=== PATIENT | male | born 1965 | race Caucasian/White ===

== ENCOUNTER 2018-01-10 01:27 | Inpatient (IN) | payer BC ==
[~2018-01-10] VITALS: Ht 182.9 cm; Wt 144.4 kg
[2018-01-10] MEDS ORDERED: POTASSIUM CHLO20 ME2 PO (01:33)
[2018-01-10] MEDS ORDERED: LEVOTHYROXINE125 MCG PO (01:34)
[2018-01-10] MEDS ORDERED: HYDROCHLOROTHIA25 MG PO (01:35)
[2018-01-10] MEDS ORDERED: OLMESARTAN MEDO20 MG PO (01:35)
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
[2018-01-10] MEDS ORDERED: LEVOTHYROXINE112 MCG PO (10:38)
--- NOTE | 2018-01-10 13:33 | OR ---
[facility] [address], [place] [address] Signed DATE OF OPERATION: 01/10/2018 SURGEON: Clayton Sanchez MD PREOPERATIVE DIAGNOSES: 1. Acute calculous cholecystitis. 2. Morbid obesity. 3. Non-reducible umbilical hernia. POSTOPERATIVE DIAGNOSES: 1. Severe advanced gangrenous cholecystitis with gallstones. 2. Morbid obesity. 3. Umbilical hernia, incarcerated with omental fat. PROCEDURE: 1. Laparoscopic cholecystectomy with attempted cholangiogram, prolonged complicated difficult. 2. Surgeon-directed fluoroscopy. ANESTHESIA: General endotracheal, Lamine [place], JACK SPOOLER TENDER, and local 20 mL of 0.25% Marcaine with epinephrine. DRAINS: 7 mm Robert. 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 He has been having episodes of upper abdominal pain over many months, but last night had very severe pain after dinner in a band-like configuration in the upper abdomen. This progressed to epigastric and right subcostal pain. He presented to the emergency room in the resolution expert hours and a gallbladder ultrasound was performed showing multiple gallstones, no sign of intrahepatic ductal dilatation, a thickened gallbladder wall, and findings completely consistent with acute calculous cholecystitis. He has been admitted given fluid resuscitation, intravenous antibiotics, parenteral pain medication and so on. He did have a fair amount of difficulty getting comfortable despite reasonably advanced pain medication regimen. Electronically Signed By: CLAYTON SANCHEZ MD 01/10/18 1333 PATIENT NAME: CYRUS NAZARIO OPERATIVE REPORT DATE OF : 67 REPORT #: [id number] PHYSICIAN: CLAYTON SANCHEZ MD PCP: OTHER PCP REPORT IS CONFIDENTIAL AND NOT TO BE RELEASED WITHOUT AUTHORIZATION [facility] [address] [place], [place] [address] Signed He is now to undergo cholecystectomy preferably by laparoscopic approach. He and his understand the risks of bleeding, infection, bile duct injury, need for open procedure, retained stones, and other unforeseen complications and wished to proceed. FINDINGS: Gangrenous cholecystitis was noted. It was quite impressive. Decompression of the gallbladder showed dark bile. Despite the difficulty, cholecystectomy was performed laparoscopically. The operation was prolonged and difficult on that basis. The cystic duct was well identified. Cholangiogram was attempted, but due to leakage and so forth, a reasonable cholangiogram was never performed. Notably, he had preoperatively normal liver enzymes and I think it unlikely as retained stone, though it is a possibility he is admitted. The cystic duct, which was secured was viable. A drain was placed. Additionally, he was noted to have an umbilical hernia, which had incarcerated omental fat. The defect was about 3 cm. It would be strictly contraindicated to implant prosthetic mesh in this setting and repair with sutures alone would be highly probable for recurrence. This hernia can be repaired electively in the future. DESCRIPTION OF PROCEDURE: The patient was brought to the operating room, given a general endotracheal anesthetic. Concern was maintained this may be a difficult airway, but intubation went without problem. Preoperative antibiotic Ancef was given. Sequential compression device stockings were used and heparin subcutaneously administered. The abdomen was clipped and prepared with chlorhexidine solution and draped sterilely. His rotund abdomen necessitated a lifts for operative personnel. Given the non-reducible umbilical hernia, a supraumbilical incision was made and using an open Danyel cannula technique, pneumoperitoneum was achieved to a level of 14 mmHg of carbon dioxide gas. Intraabdominal inspection was undertaken showing a glimpse of the apex of the gallbladder, which was quite gangrenous. The liver itself was fatty infiltrated. There was no sign of ascites or carcinomatosis. Three additional trocars were placed in usual configuration, the subxiphoid, right midclavicular, and right anterior axillary line. The gallbladder was too tense and distended to be elevated cephalad. On that basis, a decompressing needle trocar was used to decompress dark bile from the gallbladder. The puncture site was secured with an endo-loop so as to avoid drainage during the case. The gallbladder was elevated cephalad, but his fatty liver impaired full elevation of the gallbladder initially. It was deemed advisable to additionally place a fan retractor. An epigastric incision was made and another 5 mm port placed allowing for a fan retractor to better expose the Electronically Signed By: CLAYTON SANCHEZ MD 01/10/18 1333 PATIENT NAME: CYRUS NAZARIO OPERATIVE REPORT DATE OF : 67 REPORT #: [id number] PHYSICIAN: CLAYTON SANCHEZ MD PCP: OTHER PCP REPORT IS CONFIDENTIAL AND NOT TO BE RELEASED WITHOUT AUTHORIZATION [facility] [address] [place] [id number] Signed infundibulum of the gallbladder. Impressive edema and inflammation of the fatty surrounds of the gallbladder was noted. Using blunt and electrocautery dissection, the infundibulum was dissected free with meticulous care. The cystic duct ultimately identified. Photographs were taken throughout. Once satisfied of the anatomy of the cystic duct, the clips were applied across gallbladder cystic duct junction. A transverse choledochotomy was made in the cystic duct. Retrograde milking of the duct showed relatively clear bile. An Renteria-type cholangiocatheter was placed in the cystic duct and attempts at passage of contrast into the biliary tree were met with leakage at the insertion site. Multiple permutations of passage of the catheter into the cystic duct was undertaken. It seemed to pass relatively freely and had no discernible impediment actually. Still, fluoroscopic view showed gross extravasation at the insertion site. Further dissection was undertaken of the cystic duct with all due care due to the profound edema and inflammation of surrounding area, viable duct was noted. Clips were reapplied to the infundibulum cephalad to the choledochotomy, but still a good cholangiogram was never really forthcoming unfortunately. Consideration was made for doing open operation to provide for cholangiogram, but consideration of his liver enzymes being normal preoperatively and no intrahepatic ductal dilatation. On ultrasound, the possibility of clinically relevant stones in the common bile duct was deemed less and therefore, no further attempts at cholangiogram were open operation for cholangiogram was deemed appropriate. The cystic duct was triply clipped and divided and the gallbladder was then dissected free in a retrograde fashion. Clips were applied to the cystic arterial branches as necessary. The excision of the gallbladder was long and laborious in part related to its advanced inflammation and alla necrosis in some areas. A few stones were spilled during the course of this, which had leaked from the occluding clip on the infundibulum. This was additionally secured with an endo-loop. The stones that had spilled were gathered up. Ultimately, the gallbladder was excised from the liver, placed in an endobag and extracted through the supraumbilical port site. The gallbladder was opened on the back table and found to have as expected severe inflammation of mucosa, multiple yellow gallstones of variable sizes. Irrigation was undertaken in the subhepatic space. There was no sign of bile leak, bleeding, or other problems. Through a right-sided trocar site, a 7 mm flat Robert drain was insinuated into the subhepatic space and secured the skin with a 2-0 nylon suture. The trocars were removed under direct visualization. There was a small amount of bleeding from the 5 mm trocar sites, which was easily secured with electrocautery. Electronically Signed By: CLAYTON SANCHEZ MD 01/10/18 1333 PATIENT NAME: CYRUS NAZARIO OPERATIVE REPORT DATE OF : 67 REPORT #: [id number] PHYSICIAN: CLAYTON SANCHEZ MD PCP: OTHER PCP REPORT IS CONFIDENTIAL AND NOT TO BE RELEASED WITHOUT AUTHORIZATION [facility] [address], [place] [address] Signed Explantation of the Danyel cannula allowed for digital examination of the hernia inferior to the supraumbilical incision. The hernia defect had an incarcerated omentum. No hollow viscus. It was deemed advisable to leave the hernia in situ for the time being as the size was about 3 cm and had no hollow viscus within it and could not reasonably be repaired with mesh and quite unlikely to be adequately repaired with suture technique alone. Repair of the hernia in the future will be planned. The fascia of the umbilical site was reapproximated 1st with interrupted 2-0 PDS and subsequently 0 Vicryl securing it well. Irrigation was undertaken and the skin and hemostasis assured. A 20 mL of 0.25% Marcaine with epinephrine was injected locally. The skin was then closed with interrupted 3-0 Vicryl. Steri-Strips were applied. The patient was ultimately extubated. He was noted to have a fair amount of coughing and straining of the abdominal wall, but no discernible disruption of his supraumbilical wound. He was taken to recovery room in good condition having suffered no complication. The operation was prolonged, complicated, and difficult lasting four times longer than usual, all related to his advanced obesity, severe gangrenous changes of the gallbladder and so on. MD VONDA Retana/BECKYL /[id number] cc: TAMMY Godoy MD Copies: CHRISTINA HUNT PA-C, KELLY DEAN MD ~ Electronically Signed By: CLAYTON SANCHEZ MD 01/10/18 1333 PATIENT NAME: CYRUS NAZARIO OPERATIVE REPORT DATE OF : 67 REPORT #: [id number] PHYSICIAN: CLAYTON SANCHEZ MD PCP: OTHER PCP REPORT IS CONFIDENTIAL AND NOT TO BE RELEASED WITHOUT AUTHORIZATION
--- NOTE | 2018-01-10 21:55 | EKG ---
[facility] [address] [facility] [place] [address] Signed Sinus bradycardia Otherwise normal ECG No previous ECGs available Confirmed by MARION PHAM MD ([id number]) on 01/10/2018 9:55:13 PM Electronically Signed By: MARION PHAM MD 01/10/18 2155 PATIENT NAME: CYRUS NAZARIO Electrocardiogram DATE OF : 67 PHYSICIAN: MARION PHAM MD REPORT #: [id number] REPORT IS CONFIDENTIAL AND NOT TO BE RELEASED WITHOUT AUTHORIZATION
[2018-01-11] MEDS ORDERED: IBUPROFEN600 MG PO (18:03)
[2018-01-11] MEDS ORDERED: OXYCODON-ACETA1 EAC2 PO (18:03)
[2018-01-11] MEDS ORDERED: MAPAP325 MG PO (18:04)
== END 2018-01-11 18:45 | disposition home or self-care (01) | DRG 418 ==
LOC: ED 01:27 → MS 01:29
PROVIDERS: ADMIT Surgery
PROC: 0FT44ZZ Resection of Gallbladder, Percutaneous Endoscopic Approach (ICD-10-PCS; principal; 2018-01-10 09:00)
DX: K80.00 Calculus of gallbladder with acute cholecystitis without obstruction (principal); K42.0 Umbilical hernia with obstruction, without gangrene; Z68.41 Body mass index [BMI] 40.0-44.9, adult; I10 Essential (primary) hypertension; E03.9 Hypothyroidism, unspecified; K76.0 Fatty (change of) liver, not elsewhere classified; E66.01 Morbid (severe) obesity due to excess calories; Z79.899 Other long term (current) drug therapy; Z88.0 Allergy status to penicillin
CPT/HCPCS: 00790; 36415; 76000; 76705; 80053; 81001; 82247; 82465; 83615; 83690; 84100; 84478; 84484; 84550; 85025; 93005; 93010; 94762; 96361; 96374; 96375; 96376; 99285; C1757; G0378; J0690; J1170; J1644; J1885; J2250; J2270; J2370; J2405; J2550; J2704; J2765; J3010; J7030; J7120

== ENCOUNTER 2018-01-15 21:46 | Observation (INO) | payer BC ==
[~2018-01-15] VITALS: Ht 182.9 cm; Wt 131.1 kg
[~2018-01-15 21:46] MED LIST: HYDROCHLOROTHIA25 MG PO; IBUPROFEN600 MG PO; LEVOTHYROXINE112 MCG PO; LEVOTHYROXINE125 MCG PO; MAPAP325 MG PO; OLMESARTAN MEDO20 MG PO; OXYCODON-ACETA1 EAC2 PO; POTASSIUM CHLO20 ME2 PO
--- NOTE | 2018-01-16 00:50 | NUR ---
REPORT RECEIVED VIA PHONE FROM JARRELL GUY.
--- NOTE | 2018-01-16 01:05 | NUR ---
RECIEVED PT TO FLOOR VIA STRETCHER. PT IS A/O. SBA TO BED. PAIN 5/10. VSS. 1L NC PUT IN PLACE FOR SATURATION OF 88%. ORIENTED PT TO ROOM AND CALL LIGHT USE. NS STARTED AT 125 IN RIGHT HAND IV. IV IS PATIENT AND SITE WNL. LUNGS ARE CLEAR, HEART SOUNDS REGULAR. BOWEL TONES HYPOACTIVE. CMS INTACT. PULSES +2 X4. GLASSES AT BEDSIDE. PT IS PLACED ON NPO STATUS. CALL LIGHT WITHIN REACH. REPORTS NO OTHER NEEDS AT THIS TIME.
--- NOTE | 2018-01-16 01:50 | NUR ---
REPOTRED 5/10 PAIN PRN PAIN MEDICATION GIVEN. PT ON CONT PULSE OX FOR DESATTING TO 88%. 1L NC IN PLACE.
--- NOTE | 2018-01-16 03:38 | NUR ---
PT APPEARS TO BE SLEEPING. RESPIRAIOTNS ARE EQUAL. PT IS SNORING. 1L NC IN PLACE. SATURATION 95%, HEART RATE IS 66. NS INFUSING @ 125ML/HR. CALL LIGHT IS WITHIN REACH.
--- NOTE | 2018-01-16 06:08 | NUR ---
PAIN 6/10 PRN PAIN MEDICAITON GIVEN. CALL LIGHT WITHIN REACH. REPORTS NO OTHER NEEDS AT THIS TIME .
--- NOTE | 2018-01-16 06:52 | NUR ---
NPO, SBA WITH IV POLE. 1L NC WHILE SLEEPING. LUQ PAIN. PRN PAIN MEDICATION. ANTIEMETICS, FLUIDS, BOWEL TONES HYPOACTIVE. LUNGS CLEAR. LAP SITES X5 ON ABDOMEN,
--- NOTE | 2018-01-16 08:00 | NUR ---
RECEIVED REPORT AT 0700. FOUND PT IN BED AWAKE. PAIN WAS STATED 4/10. PT HAD NO NEEDS OR CONCERNS AT THAT TIME.
--- NOTE | 2018-01-16 10:00 | NUR ---
V/S ARE WDL, ABD SOUNDS ARE PRESENT. PAIN IS WELL CONTROLLED WITH PRN MEDS AVAILABLE. LAP SITES X5 ARE C/D/I. ALL LOBES ARE CLEAR. PT NOW IS ON CLEAR LIQUID DIET. WILL MONITOR. NO NEW COCNERNS AT THIS TIME.
--- NOTE | 2018-01-16 12:00 | NUR ---
PT IS AWAKE IN BED. PT AMBULATED X1 IN THE HALLWAY. PAIN IS WELL CONTROLLED AND PT IS ABLE TO TOLERATE CLEAR LIQUIDS WELL SO FAR.
--- NOTE | 2018-01-16 14:00 | NUR ---
V/S ARE WDL. PAIN IS WELL CONTROLLED AND PT WAS ABLE TO TOLERATE BROTH AND JELLO WELL. ABD SOUNDS AT THIS TIME ARE HYPOACTIVE. PT STILL HAS NOT PASSED GAS. PT STATED THAT ABD IS NOT DISTENDED OUTPUT IS ADEQUATE. LAP SITES X5 ARE NOW OPEN TO AIR VERBALLY REQUESTED BY MD SANTACRUZ THIS MORNING. NO NEW CONCERNS AT THIS TIME. PT IS RESTING IN BED WITH AT BEDSIDE.
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
--- NOTE | 2018-01-16 16:01 | NUR ---
PT AT THIS TIME IS UP AND WALKING THE HALLWAY. PAIN IS STILL WELL CONTROLLED. PT IS NOW PASSING GAS. NO NEW CONCERNS AT THIS TIMED.
--- NOTE | 2018-01-16 17:44 | NUR ---
PT OVERALL DID WELL TODAY. PO PAIN MEDICATION HAS BEEN STARTED AT 1700. PT IS TOLERATING CLEAR LIQUID DIET WELL. PT HAS AMBULATED IN THE HALLWAY X2 SEVERAL LAPS ON MED SURGE FLOOR. ABD IS TENDER ON LEFT SIDE IN THE MIDDLE. BOWEL TONES CHANGE FROM HYPOACTIVE TO ACTIVE. PT IS PASSING GAS. PT STATED THAT HIS ABD IS NOT DISTENDED. ABD IS ALSO SOFT TO TOUCH. ALL LOBES ARE CLEAR. PT OVERALL IS PROGRESSING WELL THIS SHIFT. V/S ARE WDL. NO NEW CONCERNS AT THIS TIME.
--- NOTE | 2018-01-16 19:10 | NUR ---
REPORT RECEIVED FROM OFFGOING RN. PT RESTING IN BED WITH EYES CLOSED. APPEARS TO BE SLEEPING. PT DOES NOT WAKE WHEN MANUAL ARTS TEACHER AND OFFGOING RN OPENED DOOR.
--- NOTE | 2018-01-16 19:39 | NUR ---
PT UP TO WALK IN [place], STATES THAT HE WILL WALK X 4 LAPS. PT STATES PAIN IS 2-3/10 WITH OCCASIONAL JABS OF PAIN UP TO 7/10 WITH DEEP BREATH. PT DENIES OTHER NEEDS, WALKING IN [place] AT THIS TIME.
--- NOTE | 2018-01-16 19:59 | NUR ---
PT ASSESSMENT COMPLETE. PT CONTINUES TO RATE PAIN 2-3 /10 AFTER WALK. STATES THAT OCCASSIONALLY PAIN SPIKES TO 7/10. AVAILABILITY OF PAIN MEDICATION DISCUSSED WITH PT, PT STATES UNDERSTANDING. DENIES NEED FOR PRN AT THIS TIME. PT DENIES NAUSEA OR SOB. BT'S ACTIVE, PT REPORTS PASSING FLATUS. DENIES BM SINCE THURSDAY. PT REPORTS TENDERNESS TO ABD. PT STATES THAT NUMBNESS PREVIOUSLY PRESENT TO L THIGH HAS SUBSIDED. PT REQUESTS TO LEAVE SCD'S OFF, PT HAS BEEN AMBULATING IN HALLS. PT DENIES OTHER NEEDS AT THIS TIME. CALL LIGHT WITHIN REACH.
--- NOTE | 2018-01-16 22:30 | NUR ---
PT UTILIZES CALL LIGHT, REPORTS PAIN. PT RATES PAIN 4-5 CONSTANT TO ABD. STATES THAT OCCASIONAL JABBING PAIN HAS WORSENED TO "ABOUT 8/10". PT REQUESTING PRN. PRN PERCOCET ADMINISTERED. PT NOT WEARING O2. SAO2 88%, 1 LPM NC APPLIED. PT ICE WATER REFILLED. PT DENIES OTHER NEEDS AT THIS TIME. CALL LIGHT WITHIN REACH.
--- NOTE | 2018-01-17 00:18 | NUR ---
PT RESTING IN BED WITH EYES CLOSED. PT WAKES EASILY WHEN MORTGAGE PROCESSING CLERK ENTERS THE ROOM. PT REPORTS THAT PAIN IS "MUCH BETTER". DENIES OTHER NEEDS, AGREES TO USE CALL LIGHT FOR NEEDS.
--- NOTE | 2018-01-17 01:30 | NUR ---
PT ASSESSMENT COMPLETE. PT RATES PAIN 11/17. PT STATES THAT PAIN IS STARTING TO BECOME ELEVATED AGAIN AFTER GETTING UP TO WALK TO THE BATHROOM. PT INFORMED WHEN PAIN MEDICATION MAY BE GIVEN AGAIN, PT STATES UNDERSTANDING. DENIES NEED FOR PAIN MEDICATION AT THIS TIME. BT'S ACTIVE, ABD REMAINS TENDER. PT DENIES NEEDS AT THIS TIME. CALL LIGHT WITHIN REACH, PT AGREES TO USE FOR NEEDS.
--- NOTE | 2018-01-17 03:31 | NUR ---
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 PT STATES THAT HE WAS UP TO BATHROOM AND WALKING IN ROOM ATTEMPTING TO PASS GAS. PT REPORTS THAT HE IS TRYING TO AVOID TAKING PAIN MEDICATION. EDUCATION PROVIDED. PT STATES UNDERSTANDING, STATES THAT HE WILL USE CALL LIGHT IF HE WOULD LIKE PAIN MEDICATION. PT WATER REFILLED. PT DENIES OTHER NEEDS AT THIS TIME. CALL LIGHT WITHIN REACH.
--- NOTE | 2018-01-17 04:57 | NUR ---
PT WAKES UPON LICENSED CHEMICAL SPRAY TECHNICIAN OPENING THE DOOR. PT REPORTS THAT HIS PAIN IS IMPROVED. DENIES OTHER NEEDS AT THIS TIME. CALL LIGHT WITHIN REACH.
--- NOTE | 2018-01-17 05:36 | NUR ---
PT AMBULATED IN HALLS EARLY IN SHIFT. SLEPT OFF AND ON REMAINDER OF SHIFT. PRN X2 FOR PAIN. O2 @ LPM WHILE PT IN BED. CPOX IN PLACE. PT PASSING FLATUS, NO BM SINCE 01/15. LAP SITES X 5 TO ABD YOLIE. INDEPENDENT IN ROOM AND BUTTERFIELD. IV D5LR @ 125. UO QS.
--- NOTE | 2018-01-17 07:45 | NUR ---
PATIENT AMBULATING HALLS, BED MADE AND ROOM TIDIED. PATINET UP IN CHAIR FOR BREAKFAST. CALL LIGHT IN REACH
--- NOTE | 2018-01-17 08:45 | NUR ---
PT HAS BEEN UP AMBULATING THE HALLS INDEPENDENTLY THIS AM, PT STATES THAT PAIN IS INCREASED WITH WALKING. PT DENIES DISTRESS AND NAUSEA. PT DOES NOT WANT PRN PAIN MANAGEMENT AT THIS TIME. PT HAS REFUSED BREAKFAST.
--- NOTE | 2018-01-17 09:46 | NUR ---
PATIENT IN BED, MALENA GODFREY IN RM. IN RM. VITALS AND I/OS CHARTED. CALL LIGHT IN REACH
--- NOTE | 2018-01-17 12:45 | NUR ---
PT IS RESTING AT BEDSIDE, SPOUSE GONE FOR THE AFTERNOON. PT HAS REFUSED LUNCH (CLEARS). NO DISTRESS. PT STATED THAT NARCOTIC HAS HELPED WITH PAIN, GIVEN PREVIOUSLY THIS SHIFT. WILL CONTINUE TO MONITOR.
--- NOTE | 2018-01-17 13:48 | NUR ---
PATIENT ON EDGE OF BED, BACK FROM BR. IN RM. VITALS AND I/OS CHARTED. CALL LIGHT IN REACH NO OTHER NEEDS.
--- NOTE | 2018-01-17 16:00 | NUR ---
PT IS RESTING AT BEDSIDE, STATES THAT HE HAS FELT BETTER TODAY, BUT IS STARTING TO FEEL MORE UNCOMFORTABLE. ASSESSMENT IS ESSENTIALLY UNCHANGED FROM THIS MORNING. PT SPILLED IV PIGGYBACK INFUSION THIS AM, AND REQUESTED ADDITIONAL FROM THE PHARMACY TO REPLACE. INFUSED. PT DENIES DISTRESS AND NAUSEA.
--- NOTE | 2018-01-17 17:40 | NUR ---
PATIENT RESTING IN BED. RAJESH CALDERA TOOK VITALS AND I&O'S. CALL LIGHT IN REACH. NO OTHER NEEDS AT THIS TIME.
--- NOTE | 2018-01-17 18:48 | NUR ---
PT HAS FELT BETTER TODAY WITH INCREASING PAIN THE AFTERNOON GOT LATER. PRN PAIN MEDICINE GIVEN x2, WITH RELIEF AT EACH INSTANCE. PT HAS DENIED NAUSEA FOR THE ENTIRE SHIFT, AND HAS NOT HAD AN APPETITE, DIET CLEARS ALL DAY.
--- NOTE | 2018-01-17 21:13 | NUR ---
PT ASSESSMENT COMPLETE. PT RATES PAIN 4/10 CONSTANT TO ABD AFTER AMBULATING IN THE [place]TERFIELD X SEVERAL LAPS. PT DENIES THE NEED FOR PRN PAIN MEDICATION AT THIS TIME. PT ABD REMAINS TENDER TO PALPATION. PT REPORTS PASSING FLATUS, DENIES BM. LAP SITES REMAIN YARD ASSOCIATE, DRY AND CRUSTY, C/D/I. PT DENIES OTHER NEEDS AT THIS TIME. CALL LIGHT WITHIN REACH, PT AGREES TO CALL WHEN HE IS READY FOR PRN PAIN MEDICATION, HE UNDERSTANDS THAT IT IS AVAILABLE ANY TIME.
--- NOTE | 2018-01-17 22:42 | NUR ---
PT CALLS, REQUESTS PAIN PILL. RATES PAIN 7-8/10 TO ABDOMEN. PRN PERCOCET PROVIDED. PT DENIES OTHER NEEDS AT THIS TIME. CALL LIGHT WITHIN REACH.
--- NOTE | 2018-01-17 23:55 | NUR ---
PT LYING IN BED AWAKE. DENIES PAIN AT THIS TIME. CALL LIGHT WITHIN REACH.
--- NOTE | 2018-01-18 03:08 | NUR ---
PT ASSESSMENT COMPLETE. PT UP TO USE THE BATHROOM. REPORTS THAT PAIN IS WELL CONTROLLED AT THIS TIME. O2 IN PLACE WHILE PT SLEEPING @ 1LPM VIA NC. SAO2 94%. BT'S ACTIVE. PT CONTINUES TO PASS FLATUS, DENIES BM. ABD TENDER TO PALPATION. LAP SITES C/D/I. CALL LIGHT WITHIN PT REACH. PT AGREES TO USE FOR NEEDS.
--- NOTE | 2018-01-18 06:34 | NUR ---
PT SLEPT THROUGHOUT THE NIGHT. PERCOCET X 1 FOR PAIN. NO NAUSEA OR SOB. 1 LPM WHILE SLEEPING FOR SLEEP APNEA. CPOX IN PLACE. INDEPENDENT IN ROOM AND BUTTERFIELD. UO QS. CLEAR LIQ DIET. D5LR@ 100.
--- NOTE | 2018-01-18 06:49 | NUR ---
WRAPPED PATIENT'S IV LOCKED SITE. PATIENT TOOK SHOWER. BED LINEN CHANGED. PATIENT IS BACK IN BED NOW.
--- NOTE | 2018-01-18 08:44 | NUR ---
PATIENT RESTING IN BED, PATIENT HAS BEEN SEEN WALKING HALLWAYS INDEPENDENTLY. PATIENT CALL LIGHT IN REACH, NO OTHER NEEDS AT THIS TIME.
--- NOTE | 2018-01-18 09:30 | NUR ---
MORNING ASSESSMENT AND MEDICATIONS DUE. THIS RN TO BEDSIDE. PT VISITIGN WITH CASE MANAGEMENT. PT REPORTS 6/10 PAIN IN ABDOMEN. PT WAS UP TO WALK X2 AROUND UNIT TODAY. SEE MAR FOR MEDICATION GIVEN. ASSESSMENT DONE. MEDICAITON GIVEN (SEE MAR). SCD'S IN PLACE. IV FLUID RATE DECREASED TO 75ML/HR ORDERED. PT RESTING IN BED. BED RAILS UP. CALL LIGHT WITHIN REACH.
--- NOTE | 2018-01-18 11:22 | NUR ---
PUMP ALARMING, IV FLUID BAG COMPLETE. THIS RN TO ROOM. NEW FLUID BAG HUNG. PT REPORTS "NO PAIN AT ALL." FOCUSED ASSESSEMENT DONE. PT DRIFTS OFF TO SLEEP. RR =18 BPM. PT STATES HE HAS NO REQUESTS OR COMPLAINTS AT THIS TIME. CALL LIGHT WITHIN REACH. BED RAILS UP. SCD'S ON.
--- NOTE | 2018-01-18 11:50 | NUR ---
PT AWAKENED AT SOUND OF MY VOICE. HE WELCOMED ME, I TOLD HIM I WILL COME BACK LATER, AND HE KNODDED BACK ASLEEP. WILL CONTINUE TO FOLLOW NEEDED
--- NOTE | 2018-01-18 12:17 | NUR ---
THIS RN NOTIFIED THAT PT HAS NOT HAS A BM IN OVER A WEEK. STATES NO ACTION NEEDED AT THIS TIME.
--- NOTE | 2018-01-18 12:53 | NUR ---
PATIENT RESTING IN BED, EYES CLOSED, CALL LIGHT IN REACH. NO OTHER NEEDS AT THIS TIME.
--- NOTE | 2018-01-18 13:35 | NUR ---
CONNECTED WITH PT HE WAS UP AND WALKING IN THE HALLS. FRIENDLY, SEEMED GLAD TO BE UP AND MOVING. PT MENTIONED HE SAW A PICTURE OF THE STONE HE APPARENTLY PASSED, AND SAID HIS PAIN IS GREATLY REDUCED. EXTENDED A BLESSING, WILL FOLLOW NEEDED
--- NOTE | 2018-01-18 14:18 | NUR ---
THIS RN TO ROOM TO CHECK ON PT. PT DENIES PAIN AND NAUSEA.PT STATES HE HAS NO REQUESTS OR COMPLAINTS. AT BEDSIDE. BED RAILS UP. CALL LIGHT WITHIN REACH.
--- NOTE | 2018-01-18 16:22 | NUR ---
AFTRNOON ASSESSMENT DUE. THIS RN TO BEDSIDE. PT DENIES PAIN AND NAUSEA STATING "I'M JUST TIRED AND WANT A NAP." ASSESSMENT DONE. PT RESTING IN BED. NO REQUESTS OR COMPLAINTS. BED RAILS UP. CALL LIGHT WITHIN REACH.
--- NOTE | 2018-01-18 18:02 | NUR ---
PT HERE FOR GALLSTONE RELATED PANCREATITIS. PT INDEPENDANT IN ROOM. FULL LIQUID DIET. PIV IS A FIELD START THAT MD STATES CAN BE LEFT IN. D5LR INFUSING AT 75ML/HR. MD CONSULTED REGARDING BOWEL MOVEMENTS STATES NO BOWEL REGIME NEEDED. PRN PAIN MEDICATIONS GIVEN PER PT REQUEST. PT USING CALL LIGHT APPROPRIATLY.
--- NOTE | 2018-01-18 18:04 | NUR ---
PATIENT RESTING IN BED, CALL LIGHT IN REACH. PATIENT STATES HIS PAIN IS AT A 4 OUT OF 10. RN NOTIFIED. NO OTHER NEEDS AT THIS TIME.
--- NOTE | 2018-01-18 18:36 | NUR ---
PT UP AMBULATING AROUND BUTTERFIELD INDEPENDANTLY. PT DENIES NEED FOR PAIN MEDICAITON STATING "I'M JUST FINE."
--- NOTE | 2018-01-18 18:58 | NUR ---
PT CALL LIGHT ON. PT REQUESTS ASSISTANCE HOOKING UP HIS PULSE OX AND SCD'S. PT ASSISTED REQUESTED. O2 AT 2L NC REPLACED TO FACE O2 SATURATION READS AT 88%. O2 SATURATION CLIMBS TO 91% ON 2L O2 NC. PT STATES HE HAS NO ADDITIONAL REQUESTS OR COMPLAINTS AT THIS TIME. CALL LIGHT WITHIN REACH.
--- NOTE | 2018-01-18 19:00 | NUR ---
BEDSIDE REPORT RECEIVED FROM OFFGOING RN. PT RESTING IN BED, DENIES NEEDS AT THIS TIME. CALL LIGHT WITHIN REACH.
--- NOTE | 2018-01-18 21:15 | NUR ---
PT UTILIZES CALL LIGHT, REQUETS PAIN MEDICATION. PT FOUND STANDING IN ROOM AT BEDSIDE. PT REPORTS BACK PAIN 10/10, "INTOLERABLE". PT REPORTS THAT BACK PAIN IS NOT A CHRONIC ISSUE FOR HIM. HE BELIEVES THIS PAIN IS DUE TO LAYING IN BED FOR SEVERAL DAYS. PRN PAIN MEDICATION ADMINISTERED. HEAT APPLIED TO BACK. PT ASSESSMENT COMPLETE. BT'S ACTIVE. PT DENIES BM. ABD REMAINS TENDER TO PALPATION. LAP SITES SCABBED OVER. PT DENIES NEEDS AT THIS TIME. CALL LIGHT WITHIN REACH.
--- NOTE | 2018-01-18 22:30 | NUR ---
PT RESTING IN BED AWAKE. PT STATES THAT PAIN IS WELL CONTROLLED AT THIS TIME. CALL LIGHT WITHIN REACH. PT DENIES OTHER NEEDS.
--- NOTE | 2018-01-19 01:05 | NUR ---
PT UTILIZES CALL LIGHT, REQUESTS PAIN MEDICATION. PT REPORTS PAIN 6/10 TO BACK AND ABDOMEN. PRN PERCOCET PROVIDED. PT DECLINES HEAT TO BACK AT THIS TIME. PT DENIES OTHER NEEDS. CALL LIGHT WITHIN PT REACH.
--- NOTE | 2018-01-19 03:25 | NUR ---
PT LYING IN BED. WAKES EASILY WHEN DOOR IS OPENED. PT STATES PAIN IS WELL CONTROLLED, RATES 4/10. ASSESSMENT UNCHANGED FROM PRIOR. PT DENIES NEEDS AT THIS TIME. CALL LIGHT WITHIN REACH.
--- NOTE | 2018-01-19 05:07 | NUR ---
PT CALLS TO REQUEST MORE ICE WATER, PROVIDED. PT UP AMBULATING SEVERAL LAPS IN THE BUTTERFIELD. DENIES NEEDS AT THIS TIME.
--- NOTE | 2018-01-19 05:10 | NUR ---
PT RESTED OFF AND ON THIS SHIFT. PERCOCET X 2 FOR PAIN, LAST @ 0100. PT WITH NEW ONSET BACK PAIN, HE BELIEVES DUE TO BEING IN BED LONG PERIODS OF TIME. HEAT APPLIED TO BACK WAS HELPFUL. PT HAVING FLATUS, NO BM THIS SHIFT. D5LR @ 75. PT INDEPENDENT IN ROOM AND HALLS. USES CALL LIGHT APPROPRIATELY.
--- NOTE | 2018-01-19 06:43 | NUR ---
PT REPORTS IV LEAKING. IV CATHETER FOUND TO BE PULLED OUT, LEAKING UNDERNEATH BANDAGE. CATHETER DC'D AT THIS TIME. TIP INTACT. PT TOLERATED WELL. GAUZE AND COBAN TO SITE.
--- NOTE | 2018-01-19 07:32 | NUR ---
MORNING ASSESSMENT DUE. DISCHARGE ORDER IN PLACE. THIS RN TO ROOM FOR HAND OFF REPORT. PT STATES HE IS READY FOR DISCHARGE. PHARMACY CALLED. PHARMACIST VISITS WITH PT. PT STATES HIS QUESTIONS HAVE BEEN ANSWERED. ASSESSMENT DONE. VITALS TAKEN. PT REPORTS 3/10 PAIN THAT IS TOLERABLE. PT DECLINES NEED FOR PAIN MEDICATION. MORNING MEDICATIONS GIVEN. DISCHARGE INSTRUCTIONS REVIEWED WITH PT AND . PT AND VERBALIZE UNDERSTANDING OF INSTRUCTIONS AND STATE THEIR QUESITONS HAVE BEEN ANSWERED. PT WHEELED FROM UNIT.
--- NOTE | 2018-01-19 08:48 | DS ---
[facility] [address] [place], [place] [address] Signed ADMISSION DATE: 01/17/2018 DISCHARGE DATE: 01/19/2018 FINAL DIAGNOSIS: Gallstone pancreatitis. PROCEDURE: CT scan of abdomen and pelvis. HISTORY OF PRESENT ILLNESS: Luis is a 52-year-old gentleman, who underwent a difficult laparoscopic cholecystectomy without intraoperative cholangiogram 7 days prior to admission with Dr. Sanchez. He had a necrotic gallbladder. He had done well and had been discharged to home. He came back with significant epigastric abdominal pain about a week later. His white count was elevated along with his liver function tests and his lipase was up at 5612. CT scan was performed and he had peripancreatic inflammation. The common bile duct was unremarkable. I was asked to admit him as general surgeon on-call in Dr. Sanchez's absence. HOSPITAL COURSE: Luis was admitted as above, and given IV fluids and pain control. We withheld antibiotics. His laboratory work rapidly decreased, particularly his total bilirubin dropped from 3.21 down to 1.0 within the first day. His white count remained elevated around 12-17 throughout his hospital stay consistent with his inflammatory changes. However, his liver function tests and lipase continued to decrease daily. The pain and fullness that he had in his upper abdomen were improved each day. However, he still had some fullness there at the time of discharge. Luis and his had been asking for a couple of days about being discharged to home. At this point, Luis is on a full liquid diet. He is ambulating and getting about the hospital quite well. DISCHARGE PLANS AND MEDICATIONS: Luis will be discharged to home without any new prescriptions. He already has pain medications from his gallbladder surgery. He is welcome to take his chronic medications at home. I have asked him to stay on a relatively soft diet at least for the next few days and as he feels better, he can increase his diet inflammation that he has is not going to be gone in a day or two, it is going to actually be over a week. He still remains at risk and I explained that to him in detail. He has an appointment already with Dr. Sanchez in about 12 days and he is going to keep that appointment. In the meantime, if he has any concerns, questions, or change in his status, he is going to call my office immediately. I will be headed out of town tomorrow myself and our local surgeon will be here locally. Nevertheless, he is certainly welcome to call my Electronically Signed By: FRANCY SANTACRUZ MD 01/19/18 0848 PATIENT NAME: LUIS NAZARIO DISCHARGE SUMMARY DATE OF : 67 REPORT #: [id number] PHYSICIAN: FRANCY SANTACRUZ MD PCP: OTHER PCP REPORT IS CONFIDENTIAL AND NOT TO BE RELEASED WITHOUT AUTHORIZATION [facility] [address] [place] [id number] Signed cellphone. I have reviewed all this with Luis in detail. He has expressed understanding and agrees with above plan. Francy Santacruz MD ALB/MODL /[id number] cc: MD Francy Retana MD Chloe K Norris, PA-C Copies: CLAYTON SANCHEZ MD,CHRISTINA ARAUJO MD, PA-C ~ Electronically Signed By: FRANCY SANTACRUZ MD 01/19/18 0848 PATIENT NAME: LUIS NAZARIO DISCHARGE SUMMARY DATE OF : 67 REPORT #: [id number] PHYSICIAN: FRANCY SANTACRUZ MD PCP: OTHER PCP REPORT IS CONFIDENTIAL AND NOT TO BE RELEASED WITHOUT AUTHORIZATION
== END 2018-01-19 07:58 | disposition home or self-care (01) ==
LOC: ED 21:46 → MS 21:47
PROVIDERS: ADMIT Colon & Rectal Surgery
DX: K85.10 Biliary acute pancreatitis without necrosis or infection (principal); I10 Essential (primary) hypertension; E03.9 Hypothyroidism, unspecified; E83.39 Other disorders of phosphorus metabolism; E66.9 Obesity, unspecified; Z90.49 Acquired absence of other specified parts of digestive tract; Z88.0 Allergy status to penicillin; Z79.1 Long term (current) use of non-steroidal anti-inflammatories (NSAID); Z79.891 Long term (current) use of opiate analgesic; Z79.899 Other long term (current) drug therapy; Z68.39 Body mass index [BMI] 39.0-39.9, adult
CPT/HCPCS: 36415; 74177; 80053; 81001; 83690; 83735; 84100; 85025; 94762; 96361; 96372; 96374; 96375; 96376; 99285; G0378; J1170; J1644; J2270; J2405; J7030; J7120; Q9967

== ENCOUNTER 2022-11-04 06:09 | Inpatient (IN) | payer OTHER ==
[~2022-11-04] VITALS: Ht 182.9 cm; Wt 142.0 kg
[~2022-11-04 06:09] MED LIST changes: +ASPIR-LOW81 MG PO; +CO Q10100 MG PO; +FISH OIL 1,0001 EAC3 PO; +NIACIN500 M1 PO; +ONCE DAILY1 EACH PO
--- NOTE | 2022-11-04 18:18 | CONS ---
[facility] [address] [place], [place] [address] Signed DATE OF CONSULTATION: 11/04/2022 CHIEF COMPLAINT: Periumbilical abdominal pain and swelling. HISTORY OF PRESENT ILLNESS: Luis is a 57-year-old obese gentleman, who underwent laparoscopic cholecystectomy with Dr. Samuel at age 52 about five years ago. This was followed by pancreatitis. Apparently, he had gallstones as well. In that same year, he had an umbilical and possibly a trocar site incisional hernia repaired with mesh. He has generally been doing fine since that time. 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 He and his have moved here from [place]. She happens to work in the human resource department at a nearby hospital. 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 He also likes to lift weights to help stay in shape. He said for at least a year, he has noticed swelling in the periumbilical area. He was not sure if it was a hernia. There was some question whether or not he was going to have it repaired this summer, I think once the kids are out of school. Although yesterday, he started to get increasing pain in that area and felt like he needed to burp. He came to the emergency room for evaluation. He clearly has a very large supraumbilical recurrent incisional hernia. His white count is up at 12.7. The rest of his labs were fine. He underwent a CT scan of the abdomen and pelvis and he does have a large hernia sac measuring 6.6 x 16 x 22 cm. It contains loops of distal jejunum and some of the proximal ileum. They are a little thickened and edematous. There was a little bit of free fluid in the hernia sac. He has a few air-fluid levels. The fascial defect is 6.6 cm wide. Interestingly, the proximal jejunum has normal caliber and the distal ileum and large intestine are decompressed. The large intestine is otherwise unremarkable. He appears to still have his appendix. Consequently, I was asked by the ER physician to admit him with respect to the above. In the meantime, he has had his nasogastric tube placed and he has just made it down to his room. I have been operating all morning. His is at the bedside. I have known this family for quite some time. PAST MEDICAL HISTORY: 1. Hypertension. 2. Hypothyroidism. 3. Gallstone related pancreatitis. 4. Obesity. PAST SURGICAL HISTORY: Includes the laparoscopic cholecystectomy at age 52 [address] Samuel. He underwent an umbilical incisional hernia repair at the age of 52 [address] Samuel requiring mesh. Although, that incision extends up and I imagine it includes the trocar site as well. He has undergone facial reconstruction. He has had his left eye surgery. He has had his left biceps torn and repaired. Electronically Signed By: FRANCY SANTACRUZ MD 11/04/22 1818 PATIENT NAME: LUIS NAZARIO CONSULTATION DATE OF : 67 REPORT #: [id number] PHYSICIAN: FRANCY SANTACRUZ MD PCP: XIAO MURPHY PA-C REPORT IS CONFIDENTIAL AND NOT TO BE RELEASED WITHOUT AUTHORIZATION [address] [address] Signed SOCIAL HISTORY: He does not smoke or drink. He is to Kaley at [phone]. They have two children. 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 He prefers the [facility]. Xiao Murphy is his primary care provider. FAMILY HISTORY: None. REVIEW OF SYSTEMS: He had 10 systems reviewed and nothing new to add. ALLERGIES: Amoxicillin caused him to break out. MEDICATIONS: 1. Potassium chloride. 2. Olmesartan. 3. Hydrochlorothiazide. 4. Levothyroxine at 112 mcg p.o. daily. 5. Fish oil. 6. Aspirin. PHYSICAL EXAMINATION: VITAL SIGNS: His blood pressure is 168/97, his heart rate is 66, respiratory rate is 20, temperature is 97.6. He is 95% on room air. He is 6 feet tall at 313 pounds. GENERAL: Luis is a 57-year-old gentleman, who was in the bathroom and he ambulated over to the bed. He is a little uncomfortable, I think mainly from the NG tube. He gets in and out of the bed pretty well. LUNGS: Clear to auscultation bilaterally. HEART: Regular rate and rhythm without murmurs. ABDOMEN: Significantly protuberant with a large periumbilical incisional hernia. It has been 20 cm in diameter. I really cannot get any sense of any ability to reduce this hernia. He has probably 15 cm periumbilical incisional hernia mainly above the umbilicus. RADIOGRAPHIC STUDIES: CT scan of abdomen and pelvis is reviewed along with the report. He clearly has this 6.6 fascial defect with small bowel inside his rather large hernia. It does not appear that it is completely obstructed. ASSESSMENT AND PLAN: Luis is a 57-year-old obese gentleman with a recurrent periumbilical incisional hernia Electronically Signed By: FRANCY SANTACRUZ MD 11/04/22 8319 PATIENT NAME: LUIS NAZARIO CONSULTATION DATE OF : 67 REPORT #: [id number] PHYSICIAN: FRANCY SANTACRUZ MD PCP: XIAO MURPHY PA-C REPORT IS CONFIDENTIAL AND NOT TO BE RELEASED WITHOUT AUTHORIZATION [facility] [address] [place], [place] [address] Signed that contains Prolene mesh. He has been admitted and placed with an NG tube. Hopefully we can get this to settle down conservatively. I have reviewed with Luis and his this would be a significant undertaking to repair this hernia. If he could lose 50 to 60 pounds, it would help tremendously. They are aware that smoking and obesity are the two top reasons for recurrent hernias. On top of that, he likes to lift weights to help stay in shape. At this point, we will get him admitted and follow a conservative plan. They have expressed understanding and agreed with the above plan. Francy Santacruz MD [facility]/MODL /[id number] cc: TAMMY Godoy MD Copies: XIAO MURPHY PA-C, ANDREW L MD ~ Electronically Signed By: FRANCY SANTACRUZ MD 11/04/22 1818 PATIENT NAME: LUIS NAZARIO CONSULTATION DATE OF : 67 REPORT #: [id number] PHYSICIAN: FRANCY SANTACRUZ MD PCP: XIAO MURPHY PA-C REPORT IS CONFIDENTIAL AND NOT TO BE RELEASED WITHOUT AUTHORIZATION
[2022-11-05] MEDS ORDERED: SAW PALMETTO500 MG PO (16:47)
[2022-11-05] MEDS ORDERED: MILK THISTLE500 MG PO (16:47)
--- NOTE | 2022-11-06 07:29 | DS ---
[facility] [address] [place], [place] [address] Signed ADMISSION DATE: 11/04/2022 DISCHARGE DATE: 11/06/2022 FINAL DIAGNOSIS: Resolved partial small-bowel obstruction secondary to recurrent periumbilical incisional hernia. PROCEDURES: 1. CT scan of abdomen and pelvis. 2. Small-bowel followthrough. HISTORY OF PRESENT ILLNESS: Luis is a 57-year-old obese gentleman, who several years ago underwent a laparoscopic cholecystectomy for gangrenous gallbladder with Dr. Sanchez. He came back that same year for his 3 cm umbilical hernia and hernia in his supraumbilical trocar site incision to be repaired by Dr. Sanchez with Prolene mesh. He says he likes to lift weights to help stay in shape. Nevertheless, he is a large man with a large abdomen. He noticed for at least a year that he has quite the hernia just above the umbilicus. The hernia sac is probably 20 cm in diameter. It was giving him some trouble with pain and he ended up in the emergency room. I have been asked to admit him as a general surgeon on-call in Dr. Sanchez's absence. HOSPITAL COURSE: Luis was admitted as above and treated conservatively with IV fluids and NG tube. Initially, he received Rocephin and Flagyl. He improved rather quickly, so we performed a surgeon's small-bowel followthrough. The barium went right through the bowel and into the colon quite quickly without any obvious delay. Of course, the small bowel loops remained out in his ventral hernia through a 6.6 cm fascial defect. Therefore, we had discontinued the NG tube and he was placed on full liquid diet yesterday. He has been through the full liquid diet with several bowel movements, lots of flatus and now his ventral hernia is quite soft and nontender, but still incarcerated. He said this is his baseline. Given his improvement, then he is going to be discharged to home with his and family. DISCHARGE PLANS AND MEDICATIONS: Luis will be discharged to home without any new medications. He is going to advance his diet over several days. He will resume his regular medications. I have asked him to curtail his heavy weightlifting and consider walking and improving his diet to lose weight. He and his were aware that smoking and obesity are the two top reasons people develop recurrent hernias. If he would lose 50 to 60 pounds, it would markedly improve his surgical outcome. 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 He tells me he wants to have this repaired sometime this upcoming summer. He and his told me they are going to call Dr. Sanchez's office and make those arrangements. Consequently, he will follow up in my office as needed. He has expressed understanding and agrees with the above plan. Francy Santcaruz MD ALB/MODL /[id number] cc: MD Francy Retana MD Copies: CLAYTON SANCHEZ MD, ANDREW L MD ~ Electronically Signed By: FRANCY SANTACRUZ MD 11/06/22 0729 PATIENT NAME: LUIS NAZARIO DISCHARGE SUMMARY DATE OF : 67 REPORT #: [id number] PHYSICIAN: FRANCY SANTACRUZ MD PCP: CHRISTINA HUNT PA-C REPORT IS CONFIDENTIAL AND NOT TO BE RELEASED WITHOUT AUTHORIZATION
--- NOTE | 2022-11-07 21:24 | EKG ---
[facility] [address] [facility] [place] [address] Signed Sinus bradycardia Low voltage QRS Borderline ECG When compared with ECG of 15-MAR-2018 10:30, No significant change was found Confirmed by MARION PHAM MD ([id number]) on 11/07/2022 9:24:18 PM Electronically Signed By: MARION PHAM MD 11/07/22 2124 PATIENT NAME: CYRUS NAZARIO Electrocardiogram DATE OF : 67 PHYSICIAN: MARION PHAM MD REPORT #: [id number] REPORT IS CONFIDENTIAL AND NOT TO BE RELEASED WITHOUT AUTHORIZATION
== END 2022-11-06 08:25 | disposition home or self-care (01) | DRG 394 ==
LOC: ED 06:09 → MS 09:09
PROVIDERS: ADMIT Colon & Rectal Surgery; ATTEND Colon & Rectal Surgery
PROC: 0D9670Z Drainage of Stomach with Drainage Device, Via Natural or Artificial Opening (ICD-10-PCS; principal; 2022-11-04)
DX: K43.0 Incisional hernia with obstruction, without gangrene (principal); Z68.41 Body mass index [BMI] 40.0-44.9, adult; Z20.822 Contact with and (suspected) exposure to COVID-19; I10 Essential (primary) hypertension; E78.5 Hyperlipidemia, unspecified; E66.9 Obesity, unspecified; Z90.49 Acquired absence of other specified parts of digestive tract; Z88.0 Allergy status to penicillin; Z79.82 Long term (current) use of aspirin; Z79.890 Hormone replacement therapy; Z79.899 Other long term (current) drug therapy
CPT/HCPCS: 36415; 71045; 74177; 74250; 80053; 81003; 83690; 83735; 84100; 84134; 85025; 93005; 93010; 94760; A9270; C9113; J0696; J1650; J2405; J3010; J7030; J7121; Q9967; U0003

== ENCOUNTER 2024-07-05 15:58 | Emergency (ER) | payer BC ==
[~2024-07-05] VITALS: Ht 182.9 cm; Wt 124.9 kg
[~2024-07-05 15:58] MED LIST changes: +MILK THISTLE500 MG PO; +SAW PALMETTO500 MG PO
[2024-07-05] MEDS ORDERED: CO Q-10100 MG PO (16:14)
[2024-07-05] MEDS ORDERED: NIACIN500 M1 PO (16:15)
[2024-07-05 16:40] LABS: BASOPHILS 0.4 % (0-2); EOSINOPHILS 0.7 % (0-6); HEMATOCRIT 38.5 % (35.0-50.0); HEMOGLOBIN 13.5 g/dL (12.0-18.0); LYMPHOCYTES 17.3 % (24-44); MCH 33.7 (27-36); MCV 96.2 fl (81-99); MONOCYTES 5.8 % (0-12); NEUTROPHILS 75.8 % (39-80); PLATELET COUNT 166 K/uL (140-440); RDW 13.1 (10.5-15.0)
[2024-07-05 16:58] LABS: ALBUMIN 3.5 g/dL (3.4-5.0); ALBUMIN/GLOBULIN RATIO 0.85 (1.1-2.4); ALKALINE PHOSPHATASE 55 U/L (46-116); ALT (SGPT) 32 U/L (14-59); ANION GAP 10.6 (7-21); AST (SGOT) 18 U/L (15-37); BILIRUBIN, TOTAL 0.4 ng/dL (0.2-1.0); BUN/CREATININE RATIO 17.69 (6.0-28.6); CALCIUM 9.2 mg/dL (8.5-10.1); CARBON DIOXIDE 30 mmol/L (21-32); CHLORIDE 102 mmol/L (98-107); CREATININE, SERUM 1.13 mg/dL (0.70-1.30); GLOMERULAR FILTRATION RATE,EST 75 mL/min (>60); POTASSIUM 3.6 mmol/L (3.5-5.1); PROTEIN, TOTAL 7.6 g/dL (6.4-8.2); UREA NITROGEN 20 mg/dL (7-18)
[2024-07-05 18:12] VITALS: BP 134/88
--- NOTE | 2024-07-05 23:00 | EKG ---
[facility] [address] [facility] [place] [address] Signed Normal sinus rhythm Low voltage QRS Borderline ECG When compared with ECG of 05-NOV-2022 12:16, No significant change was found Confirmed by Erma Leonardo MD () on 07/05/2024 11:00:07 PM Electronically Signed By: ERMA LEONARDO MD 07/05/242299 PATIENT NAME: CYRUS NAZARIO Electrocardiogram DATE OF : 67 PHYSICIAN: ERMA LEONARDO MD REPORT #: [id number] REPORT IS CONFIDENTIAL AND NOT TO BE RELEASED WITHOUT AUTHORIZATION
== END 2024-07-05 18:13 | disposition home or self-care (01) ==
LOC: ED 15:58
PROVIDERS: Emergency Medicine
DX: R07.89 Other chest pain (principal); I10 Essential (primary) hypertension; E03.9 Hypothyroidism, unspecified; Z79.890 Hormone replacement therapy; Z79.82 Long term (current) use of aspirin; Z79.899 Other long term (current) drug therapy
CPT/HCPCS: 36415; 71045; 80053; 84484; 85025; 93005; 93010; 99285-25

== ENCOUNTER 2024-09-02 05:58 | Day surgery (SDC) | payer BC ==
[~2024-09-02] VITALS: Ht 182.9 cm; Wt 129.5 kg
[~2024-09-02 05:58] MED LIST changes: +CO Q-10100 MG PO; +INDOMETHACIN50 MG PO; +MIDAZOLAM HCL 5 MG/5 ML VIAL IV PRN; +fentaNYL citrate 100 MCG/2 ML VIAL IV PRN
[2024-09-02 06:34] VITALS: BP 125/68
[2024-09-02] MEDS ORDERED: MIDAZOLAM HCL 5 MG/5 ML VIAL ONE (06:50)
[2024-09-02] MEDS ORDERED: fentaNYL citrate 100 MCG/2 ML VIAL ONE (06:50)
[2024-09-02] MEDS ORDERED: LACTATED RINGER'S 1,000 ML IV SCH (07:00)
[2024-09-02] MEDS ORDERED: LIDOCAINE HCL 1% 5 ML SDV INJ ONE (07:00)
[2024-09-02] MEDS ORDERED: IBLOOD GLUCOSE TEST STRIP 1 EA TEST VI PRN (07:00)
--- NOTE | 2024-09-02 08:09 | NUR ---
09/02/24 0809 Sima Santana 0800-PT ARRIVES TO PACU VIA STRETCHER, PT RESTING SEMI FOWLERS, PT A+OX4, PT DENIES PAIN OR NAUSEA, PT ENCOURAGED TO PASS GAS, VSS ON 2L VIA NC, RR EVEN AND UNLABORED. 0805-PT TITRATED TO RA, VS REMAIN STABLE. 0810- AT BEDSIDE TO DISCUSS PROCEDURE RESULTS AND PLAN OF CARE W/ PT, ALL QUESTIONS ANSWERED.
[2024-09-02 08:16] VITALS: BP 112/74
--- NOTE | 2024-09-05 13:24 | PATH ---
[facility] [address] [facility] [place] [address] Signed SPECIMEN(S): A DESCENDING COLON POLYP SPECIMEN SOURCE: A. DESCENDING COLON POLYP CLINICAL HISTORY: Initial screening, polyp versus hyperplasia FINAL PATHOLOGIC DIAGNOSIS: Descending colon polyp: - Tubular adenoma (two fragments). JVR:cml MICROSCOPIC EXAMINATION: Histologic sections of all submitted blocks are examined by light microscopy. These findings, together with the gross examination, support the pathologic diagnosis. GROSS DESCRIPTION: The specimen, labeled and designated "Kathryn, descending colon polyp," is received in formalin and consists of eight briceño soft tissue fragments, ranging from 0.2-0.3 cm. Entirely submitted in (A1). VB (under the direct supervision of a pathologist) The Gross Description was prepared using a voice recognition system. The report was reviewed for accuracy; however, sound-alike word errors, addition and/or deletions may occur. If there is any question about this report, please contact Client Services. PERFORMING LABORATORY: Technical component was performed by [facility], [address] [place] [id number] (CLIA# [id number]). Professional interpretation was performed by [facility], [address] [place] [id number] (CLIA#: [id number]). Diagnostician: Arvin Patel MD Pathologist Electronically Signed 09/05/2024 PATIENT NAME: CYRUS NAZARIO PATHOLOGY DATE OF : 67 REPORT #: [id number] PHYSICIAN: CARLOS EDUARDO COLE PCP: CHRISTINA HUNT PA-C REPORT IS CONFIDENTIAL AND NOT TO BE RELEASED WITHOUT AUTHORIZATION
--- NOTE | 2024-09-12 08:10 | OR ---
[facility] [address] [place], [place] [address] Signed DATE OF OPERATION: 09/02/2024 SURGEON: Clayton Sanchez MD PREOPERATIVE DIAGNOSES: 1. Colon screening. 2. Recurrent umbilical hernia. POSTOPERATIVE DIAGNOSES: 1. Diverticulosis, sigmoid and left colon. 2. Small area of linear polyp versus hyperplasia. PROCEDURE: Total colonoscopy to cecum with cold morcellation polypectomy x1. ANESTHESIA: Intravenous sedation; fentanyl 150 mcg and Versed 7 mg. INDICATION: This 59-year-old white man is a patient of JONEL Sandoval and well known to me from the past. He underwent umbilical hernia repair by me in 2018, concurrent to cholecystectomy. He was quite morbidly obese at that time. He has never undergone colonoscopy and is referred by JONEL Sandoval for consideration of colonoscopy. He understands the risk of bleeding, infection, and perforation related to colonoscopy and wished to proceed. He has no current symptoms of bleeding, diarrhea, or constipation and no family history of colon cancer. FINDINGS: The prep was excellent. Complete colonoscopy was undertaken of the cecum with full intubation of the cecum. He had scattered diverticula in the sigmoid and left colon. There was an area of either hyperplasia or flat polyp of the left colon which was excised with cold morcellation technique. DESCRIPTION OF PROCEDURE: The patient was brought to the endoscopy suite and placed in the lateral decubitus position, given intravenous sedation to the point of slurred speech and nystagmus. Digital rectal examination was normal. An Olympus video colonoscope was passed in the rectum and manipulated throughout the Electronically Signed By: CLAYTON SANCHEZ MD 09/12/24 0810 PATIENT NAME: CYRUS NAZARIO OPERATIVE REPORT DATE OF : 67 REPORT #: [id number] PHYSICIAN: CLAYTON SANCHEZ MD PCP: XIAO MURPHY PA-C REPORT IS CONFIDENTIAL AND NOT TO BE RELEASED WITHOUT AUTHORIZATION [facility] [address] [place] [id number] Signed colon ultimately intubating the cecum itself. The ileocecal valve and appendiceal orifice were normal. The scope was withdrawn from that point and examination undertaken showing ultimately an area of linear hyperplasia or possible linear polyp of the left colon in the proximal portion. This was excised with cold morcellation technique completely. Further withdrawal affirmed diverticula of the left colon sigmoid that was seen at passage of the scope. Retroflexed view of the rectum was normal. The scope was removed and the patient was taken to the recovery room in good condition having suffered no complications. CONCLUDING DIAGNOSES: 1. Diverticulosis and possible small polyp, left colon. 2. Umbilical hernia (recurrent). PLAN: Would recommend repeat colonoscopy in 10 years, sooner if clinically indicated. Would recommend high-fiber diet. I will advise him to schedule for recurrent umbilical hernia repair at his convenience. He will return to the ongoing care of JONEL Sandoval. MD VONDA Retana/JOSEPH /[id number] cc: Xiao Murphy PA-C Copies: XIAO MURPHY PA-C ~ Electronically Signed By: CLAYTON SANCHEZ MD 09/12/24 0810 PATIENT NAME: CYRUS NAZARIO OPERATIVE REPORT DATE OF : 67 REPORT #: [id number] PHYSICIAN: CLAYTON SANCHEZ MD PCP: XIAO MURPHY PA-C REPORT IS CONFIDENTIAL AND NOT TO BE RELEASED WITHOUT AUTHORIZATION
== END 2024-09-02 08:30 | disposition home or self-care (01) ==
LOC: OPS 05:58 → DS 05:58 → OPS 07:30 → DS 12:00
PROVIDERS: ATTEND Surgery
PROC: 0DBG8ZZ Excision of Left Large Intestine, Via Natural or Artificial Opening Endoscopic (ICD-10-PCS; principal; 2024-09-02 07:30)
DX: Z12.11 Encounter for screening for malignant neoplasm of colon (principal); D12.4 Benign neoplasm of descending colon; K57.30 Diverticulosis of large intestine without perforation or abscess without bleeding; K42.9 Umbilical hernia without obstruction or gangrene; K43.2 Incisional hernia without obstruction or gangrene; I10 Essential (primary) hypertension; E03.9 Hypothyroidism, unspecified; M10.9 Gout, unspecified; E66.01 Morbid (severe) obesity due to excess calories; Z68.38 Body mass index [BMI] 38.0-38.9, adult; Z79.82 Long term (current) use of aspirin; Z79.890 Hormone replacement therapy; Z79.899 Other long term (current) drug therapy; Z88.0 Allergy status to penicillin; Z90.49 Acquired absence of other specified parts of digestive tract
CPT/HCPCS: 99153; G0500; J2250; J3010; J7121